=== PATIENT | male | born 1940 | race Caucasian/White ===

== ENCOUNTER 2017-06-28 10:00 | Inpatient (IN) ==
[2017-06-28 12:13] LABS: Appearance,Urine CLEAR; Bilirubin,Urine NEG (NEG); Color,Urine YELLOW; Glucose,Urine (UA) NEGATIVE (NEG); Leukocyte Esterase,Urine NEG /uL (NEG); Nitrate,Urine NEG (NEG); Protein,Urine NEG (NEG); Specific Gravity,Urine 1.024 (1.000-1.035); Urine Blood NEG mg/dL (<0.03); Urobilinogen,Urine NEG (NEG)
[2017-06-28 13:49] LABS: Blood Urea Nitrogen 22 mg/dl (8-23)
[2017-06-28 13:52] LABS: Basophils # (Auto) 0 K/mcL (0.0-0.3); Basophils % (Auto) 0.4 % (0.0-2.0); Eosinophils # (Auto) 0.1 K/mcL (0.0-0.7); Eosinophils % (Auto) 1.2 % (0.0-7.0); Granulocytes % (Auto) 74.9 % (38.0-78.0); Lymphocytes # (Auto) 1.4 K/mcL (1.5-4.8); Lymphocytes % (Auto) 18.5 % (15.5-49.0); Mean Cell Volume 100.8 fL (80.0-100.0); Mean Corpuscular HGB Conc 33.8 g/dL (31.0-36.0); Monocytes # (Auto) 0.4 K/mcL (0.1-0.9); Platelet Count 279 K/mcL (140-440); RBC 3.94 M/mcL (4.50-5.90); Red Cell Distribution Width 14.7 % (11.5-14.5)
[2017-07-01] MEDS ORDERED: ceFAZolin 1 GM VIAL IV SCH ×2 (05:00→09:15)
[2017-07-01] MEDS ORDERED: oxyCODONE 10 MG TAB.ER.12H PO SCH ×2 (05:00→09:15)
[2017-07-01] MEDS ORDERED: CELECOXIB 200 MG CAPSULE PO SCH ×2 (05:00→09:15)
[2017-07-01] MEDS ORDERED: PREGABALIN 75 MG CAPSULE PO SCH ×2 (05:00→09:15)
[2017-07-01] MEDS ORDERED: IPRATROPIUM/ALBUTEROL 3 ML AMPUL.NEB NEB ONE ×2 (11:33→11:39)
[2017-07-01] MEDS ORDERED: DEXAMETHASONE 10 MG/ML VIAL IV ONE (12:20)
[2017-07-01] MEDS ORDERED: LIDOCAINE HCL/PF 100 MG/5 ML SYRINGE IV ONE (12:20)
[2017-07-01] MEDS ORDERED: TRANEXAMIC ACID 1,000 MG/10 ML VIAL IV ONE (12:20)
[2017-07-01] MEDS ORDERED: MIDAZOLAM 5 MG/5 ML VIAL IV ONE (12:20)
[2017-07-01] MEDS ORDERED: GLYCOPYRROLATE 0.2 MG/ML VIAL IV ONE (12:20)
[2017-07-01] MEDS ORDERED: fentaNYL 100 MCG/2 ML VIAL IV ONE (12:20)
[2017-07-01] MEDS ORDERED: ONDANSETRON 4 MG/2 ML VIAL IV ONE (12:20)
[2017-07-01] MEDS ORDERED: SUCCINYLCHOLINE 20 MG/ML ML IV ONE (12:20)
[2017-07-01] MEDS ORDERED: PROPOFOL 200 MG/20 ML VIAL IV ONE (12:20)
[2017-07-01] MEDS ORDERED: GENTAMICIN SULFATE 800 MG/20 ML VIAL IR ONE (13:04)
[2017-07-01] MEDS ORDERED: ACETAMINOPHEN 1,000 MG/100 ML BOTTLE IV ONE (13:26)
[2017-07-01] MEDS ORDERED: PROMETHAZINE 25 MG/ML VIAL IV PRN (13:26)
[2017-07-01] MEDS ORDERED: diphenhydrAMINE 50 MG/ML VIAL IV PRN (13:26)
[2017-07-01] MEDS ORDERED: IPRATROPIUM/ALBUTEROL 3 ML AMPUL.NEB NEB PRN (13:26)
[2017-07-01] MEDS ORDERED: ONDANSETRON 4 MG/2 ML VIAL IV PRN ×2 (13:26→14:08)
[2017-07-01] MEDS ORDERED: fentaNYL 100 MCG/2 ML VIAL IV PRN (13:26)
[2017-07-01] MEDS ORDERED: MEPERIDINE 25 MG/ML SYRINGE IV PRN (13:26)
[2017-07-01] MEDS ORDERED: NALOXONE HCL 0.4 MG/ML VIAL IV PRN (13:26)
[2017-07-01] MEDS ORDERED: ATROPINE SULFATE 0.4 MG/ML VIAL IV PRN (13:26)
[2017-07-01] MEDS ORDERED: METHOCARBAMOL 1,000 MG/10 ML VIAL IV PRN (13:26)
[2017-07-01] MEDS ORDERED: FLUMAZENIL 0.1 MG/ML ML IV PRN (13:26)
[2017-07-01] MEDS ORDERED: ePHEDrine 50 MG/ML AMPUL IV PRN (13:26)
[2017-07-01] MEDS ORDERED: METOPROLOL TARTRATE 5 MG/5 ML VIAL IV PRN (13:26)
[2017-07-01] MEDS ORDERED: BENZOCAINE/MENTHOL 1 LOZENGE PO PRN ×2 (13:26→14:08)
[2017-07-01] MEDS ORDERED: LACTATED RINGERS 1,000 ML IV SCH (13:30)
[2017-07-01] MEDS ORDERED: TRANEXAMIC ACID 1,000 MG/10 ML VIAL IV SCH (14:08)
[2017-07-01] MEDS ORDERED: FLEETS ADULT ENEMA PR PRN (14:08)
[2017-07-01] MEDS ORDERED: BISACODYL 10 MG SUPP.RECT PR PRN (14:08)
[2017-07-01] MEDS ORDERED: MAGNESIUM HYDROXIDE 30 ML ORAL.SUSP PO PRN (14:08)
[2017-07-01] MEDS ORDERED: POLYETHYLENE GLYCOL 3350 17 GM PACKET PO PRN (14:08)
[2017-07-01] MEDS ORDERED: ONDANSETRON ODT 4 MG TABLET SL PRN (14:08)
[2017-07-01] MEDS ORDERED: METHOCARBAMOL 750 MG TABLET PO PRN (14:08)
--- NOTE | 2017-07-01 14:08 | Brief Operative Note ---
Date of procedure: 07/01/17 Pre-op diagnosis: left hip oa Post-op diagnosis: same Procedure: left total hip arthroplasty Grafts/Implants: Yes Anesthesia: spinal Complications: none Surgeon: Trav Obrien Field Representatives Director: Serena Michel Estimated blood loss (cc): 150 Specimens Removed/Pathology: none sent Condition: stable Disposition: PACU
[2017-07-01] MEDS: 0.9 % SODIUM CHLORIDE 1,000 ML IV SCH (15:31)
--- NOTE | 2017-07-01 15:50 | XRay Report ---
CLINICAL INFORMATION: Postop total hip prostheses COMPARISON: None. FINDINGS: Left total hip prostheses is in near-anatomic alignment. No osseous abnormality. Soft tissues swelling over the surgical site. IMPRESSION: Negative Interpreted and Authenticated by: Trav Cast 07/01/17
[2017-07-01] MEDS: HYDROmorphone 2 MG/ML SYRINGE IV PRN (15:54)
[2017-07-01] MEDS: HYDROcodone/APAP 10/325MG TABLET PO PRN (19:51)
[2017-07-01] MEDS: ceFAZolin 1 GM VIAL IV SCH (19:52)
[2017-07-01] MEDS: DOCUSATE SODIUM 100 MG CAPSULE PO SCH (19:56)
[2017-07-01] MEDS: ASPIRIN 325 MG ENTERIC COATED TABLET PO SCH (19:56)
[2017-07-01] MEDS: 0.9 % SODIUM CHLORIDE 10 ML SYRINGE IV SCH (20:15)
[2017-07-01] MEDS ORDERED: SENNOSIDES 1 TABLET PO SCH (21:00)
[2017-07-01] MEDS ORDERED: SIMVASTATIN 10 MG TABLET PO SCH (21:00)
[2017-07-01] MEDS: KETOROLAC 15 MG/ML VIAL IV PRN (22:35)
[2017-07-02] MEDS: 0.9 % SODIUM CHLORIDE 1,000 ML IV SCH ×2 (00:59→06:17)
[2017-07-02] MEDS: HYDROmorphone 2 MG/ML SYRINGE IV PRN (03:00)
[2017-07-02] MEDS: ceFAZolin 1 GM VIAL IV SCH (04:41)
[2017-07-02] MEDS: 0.9 % SODIUM CHLORIDE 10 ML SYRINGE IV SCH (04:41)
[2017-07-02] MEDS ORDERED: OMEPRAZOLE 20 MG CAPSULE PO SCH (07:30)
--- NOTE | 2017-07-02 08:21 | Orthopedic Progress Note ---
Subjective Patient information: Note initiated : 07/02/17 at 8:20 am Service Date, if different from initiated Date: [] Patient: Erik Arshad 76 y/o M admitted on 07/01/17 for Left Total Hip Arthroplasty. Chief Complaint: [] Interval history: doing great, no pain Objective Vital signs: Vital Signs Temp Pulse Resp BP Pulse Ox 07/02/17 06:53 98.1 F 16 115/62 92 07/02/17 03:11 97.8 F 86 16 123/74 91 07/02/17 00:00 98.2 F 96 H 18 137/81 91 07/01/17 20:00 97.8 F 104 H 18 134/77 07/01/17 16:55 148/84 92 07/01/17 16:25 149/83 96 07/01/17 15:55 147/83 90 07/01/17 15:40 155/81 92 07/01/17 15:25 157/83 92 07/01/17 15:10 144/82 92 07/01/17 15:01 97.9 F 83 12 144/78 94 07/01/17 14:48 97.9 F 83 13 141/74 100 07/01/17 14:43 97.6 F 78 12 120/61 100 07/01/17 14:38 97.6 F 77 12 123/61 100 07/01/17 14:33 97.6 F 74 10 L 119/61 100 07/01/17 14:28 97.6 F 74 13 107/64 100 07/01/17 14:23 97.6 F 66 14 108/56 100 07/01/17 14:18 97.2 F 85 10 L 107/59 100 07/01/17 09:50 97.7 F 16 133/79 97 07/01/17 08:55 98.0 F 78 16 132/79 97 Intake and Output 07/01/17 07/02/17 07/02/17 21:59 05:59 13:59 Intake Total 1900 / 1900 1550 / 1550 360 / 360 Output Total 800 / 800 425 / 425 Balance 1100 / 1100 1125 / 1125 360 / 360 Intake: IV 1900 / 1900 1000 / 1000 Sodium Chloride 0.9% 1,000 ml @ 1000 / 1000 125 mls/hr IV .Q8H [facility] Rx#: [id number] Lactated Ringers 1,000 ml @ 20 1800 / 1800 mls/hr IV .Q24H [facility] Rx#: [id number] Oral 550 / 550 360 / 360 Output: Urine Catheter Amount 700 / 700 Void Amount 425 / 425 Estimated Blood Loss 100 / 100 Other: Weight 166 lb Intake & Output: Intake & Output 07/01/17 07/02/17 07/02/17 21:59 05:59 13:59 Intake Total 1900 / 1900 1550 / 1550 360 / 360 Output Total 800 / 800 425 / 425 Balance 1100 / 1100 1125 / 1125 360 / 360 Weight 166 lb Intake: IV 1900 / 1900 1000 / 1000 Sodium Chloride 0.9% 1,000 ml @ 1000 / 1000 125 mls/hr IV .Q8H [facility] Rx#: [id number] Lactated Ringers 1,000 ml @ 20 1800 / 1800 mls/hr IV .Q24H [facility] Rx#: [id number] Oral 550 / 550 360 / 360 Output: Urine Catheter Amount 700 / 700 Void Amount 425 / 425 Estimated Blood Loss 100 / 100 Incision: Yes healing Incision clean and dry: Yes Dressing: Yes clean, Yes dry, Yes intact Weight bearing status: full Neurological exam IM: Yes alert, Yes normal gait, Yes oriented X3, Yes motor sensory intact, Yes neurovascular intact Extremities exam IM: No calf tenderness, Yes Foot pink and warm, Yes neurovascular intact - Labs CBC & BMP: 07/02/17 04:48 06/28/17 10:37 Labs: Orthopedic Labs 06/28/17 10:37 PT 12.9 INR 1.0 07/02/17 06/28/17 04:48 10:37 Hgb 11.1 L 13.4 L Hct 32.6 L 39.7 L Assessment and Plan (1) Hip osteoarthritis assessment: pod 1 s/p michelle Plan: wbat pain control dvt prophylaxis d/c planning Status: Acute
--- NOTE | 2017-07-02 08:22 | Discharge Summary ---
Ortho Discharge - [facility] - Patient Instructions Diet: Regular Diet Activity: ambulate with assistive device, weight bearing as tolerated Total Hip Protocol: Follow activity instructions as provided by Physical Therapy. Dressing Care: May shower in 2 days, Aquacel Ag - leave on for 5 days - Problem Maintenance (1) Hip osteoarthritis Status: Acute - Follow Up Plan Follow Up Appointments: Trav Obrien MD [Physician] - 07/15/17 8:30 am Disposition: Home, Self-Care Prognosis: Good Rehab Potential: Good I certify that the patient requires SNF services: No Overall status at discharge: patient is progressing back to baseline
[2017-07-02] MEDS: KETOROLAC 15 MG/ML VIAL IV PRN (08:42)
[2017-07-02] MEDS: HYDROcodone/APAP 10/325MG TABLET PO PRN (08:43)
[2017-07-02] MEDS ORDERED: SERTRALINE 50 MG TABLET PO SCH (09:00)
[2017-07-02] MEDS ORDERED: LISINOPRIL 20 MG TABLET PO SCH (09:00)
[2017-07-02] MEDS: DOCUSATE SODIUM 100 MG CAPSULE PO SCH (09:21)
[2017-07-02] MEDS: ASPIRIN 325 MG ENTERIC COATED TABLET PO SCH (09:22)
--- NOTE | 2017-07-05 08:39 | Operative Note ---
DATE OF OPERATION: 07/01/2017 PREOPERATIVE DIAGNOSIS: Degenerative joint disease, left hip. POSTOPERATIVE DIGNOSIS: Degenerative joint disease, left hip. PROCEDURE: Left total hip arthroplasty. SURGEON: Shauna Obrien M.D. INK TECHNICIAN SURGEON: Serena Michel PA-C ANESTHESIA: Spinal with LMA assist. ESTIMATED BLOOD LOSS: 150 mL COMPLICATIONS: None noted. SPECIMENS REMOVED: None. DRAINS: None. IMPLANTS: DePuy [place] Gription acetabular shell 52 mm, DePuy [place] hole eliminator PS, DePuy [place] AltrX polyethylene acetabular liner lipped 32 x 52, DePuy tri-lock BPS femoral stem with Gription size 3 high offset, DePuy Biolox [place] ceramic femoral head +5, 32 mm diameter. INDICATIONS: The patient has had a longstanding history of worsening pain in the hip that has failed conservative treatment. Radiographs have confirmed advanced degenerative joint disease. After a long discussion about treatment options, the patient elected to proceed with a hip arthroplasty. The risks and benefits were discussed with the patient in detail including, but not limited to, the risks of anesthesia, problems with the heart or lungs related to anesthesia, infection, compromise or injury to the nerves and blood vessels, deep venous thrombosis, pulmonary embolism, pneumonia, continued pain after surgery, worsening pain or symptoms after surgery, swelling, loss of motion, instability, leg length discrepancy, and need for repeat surgery. DESCRIPTION OF PROCEDURE: The patient was seen in pre-anesthesia waiting room where all questions were answered and the correct side and site were identified and marked. The patient was then brought to the operating room and administered the anesthetic and given pre-operative antibiotics. A time-out was then called. The patient was placed in the lateral decubitus position with all prominences well-padded using the [place] frame and the extremity was prepped and draped in the usual sterile fashion. Anesthesia gave the patient 1 gm of tranexamic acid via an intravenous route. A standard posterior approach was made. We dissected through the skin and subcutaneous tissue to the deep fascia. The deep fascia was split in line with the incision and a Charnley retractor was placed. We exposed, tagged, and incised the short external rotators and piriformis tendon and retracted them posteriorly to help protect the sciatic nerve which was palpated throughout the case. We then performed a T-capsulotomy and tagged the capsule edges. Prior to dislocating the hip, we set a length and offset gauge from a Steinmann pin in the iliac wing to a mkea on the greater trochanter. The hip was then dislocated and a femoral neck osteotomy was performed to the pre-surgical templated level off the lesser trochanter. The head was removed and sized. We next turned our attention to the acetabulum. Retractors were placed for optimal visualization. A complete labral excision was performed. The capsule was preserved for later closure. We began reaming using anatomic landmarks with the DePuy [place] acetabular system. We medialized the cup and reamed up to provide good fill and coverage of the trial. When the trial was stable and appropriately positioned with approximately 20 degrees of anteversion and 45 degrees of abduction, we impacted the DeP[place] cup and placed a cancellous screw in the posterior-superior quadrant. Osteophytes were removed from around the shell. We placed the trial liner and turned our attention to the femur. We placed retractors for visualization, internally rotated the femur, and established intramedullary access. We broached using the DePuy Tri-Lock stem to a stable platform medial, lateral, and rotationally with the appropriate version. We then performed a calcar reaming off the broach. Trials were then placed and optimized for leg length and stability. We used the leg length and offset guide to confirm our trials. Best stability, length, and offset characteristics were obtained with these sizes. We removed all trials and impacted the polyethylene acetabular liner in a standard fashion after a thorough irrigation. We then impacted the femoral stem to its broached location and placed the head. Final reduction was performed. Again, good stability, leg length, and offset characteristics were noted. We irrigated with three liters of antibiotic saline. We closed the capsule with #2 FiberWire. We closed the fascia with a combination of #2 Stratafix and #0 Vicryl. We closed the subcutaneous tissue and skin in layers out to rebel in the skin. A sterile pressure dressing and abduction wedge was applied. All needle and sponge counts were correct. The patient was transferred to the recovery room in stable condition. [place]:eli Job ID: [id number] Doc ID: [id number] Shauna Obrien MD
== END 2017-07-02 09:40 | disposition home or self-care (01) | DRG 470 ==
LOC: MEDSUR 07-01 08:55
PROVIDERS: ADMIT Orthopaedic Surgery Sports Medicine; ATTEND Orthopaedic Surgery Sports Medicine